=== PATIENT | female | born 1985 | race Asian ===

== ENCOUNTER 2023-12-28 08:07 | Emergency (ER) | payer BC ==
[~2023-12-28] VITALS: Ht 165.1 cm; Wt 99.8 kg
[2023-12-28 08:11] VITALS: BP_SYST 140; PULSE 81; RESP 16; TEMP 97.8; O2SAT 97
[2023-12-28 08:52] LABS: BASOPHILS # (AUTO) 0.1 K/uL (0.0-0.2); EOSINOPHILS # (AUTO) 0.1 K/uL (0.0-0.4); HEMATOCRIT 39.2 % (36-48); HEMOGLOBIN 12.8 g/dL (12.0-16.0); LYMPHOCYTES # (AUTO) 1.6 K/uL (1.0-5.5); LYMPHOCYTES % (AUTO) 24.7 % (20.5-51.5); MEAN CORPUSCULAR HEMOGLOBIN 26 pg (27-31); MEAN CORPUSCULAR HGB CONC 33 % (32-36); MEAN CORPUSCULAR VOLUME 79 fL (79.0-98.0); MONOCYTES # (AUTO) 0.4 K/uL (0.0-1.0); NEUTROPHILS # (AUTO) 4.4 K/uL (1.8-7.7); NEUTROPHILS % (AUTO) 66.3 % (40.0-70.0); PLATELET COUNT (AUTO) 282 K/uL (130-430); RED BLOOD CELL COUNT(AUTO) 4.96 MIL/uL (4.2-6.2); RED CELL DISTRIBUTION WIDTH 13.8 % (9.0-15.0); WHITE BLOOD COUNT (AUTO) 6.6 K/uL (4.8-10.8)
[2023-12-28 09:10] LABS: ANION GAP 9 (5-15); CALCIUM 9.6 mg/dL (8.4-11.0); CARBON DIOXIDE 27 mmol/L (23-29); CHLORIDE 102 mmol/L (98-107); CREATININE 0.73 mg/dL (0.55-1.30); GFR AFRICAN AMERICAN 115 mL/min (>90); GLUCOSE 108 mg/dL (74-106); POTASSIUM 4.3 mmol/L (3.5-5.1); SODIUM SERUM 138 mmol/L (136-145); UREA NITROGEN, BLOOD 8 mg/dL (8-21)
[2023-12-28 09:12] LABS: GFR NON AFRICAN-AMERICAN 95 mL/min (>90)
[2023-12-28] MEDS: MAG-AL HYDROX/SIMETH 30 ML UDC PO ONE (10:02)
[2023-12-28] MEDS: FAMOTIDINE PF 20 MG/2 ML VIAL IVP ONE (10:08)
[2023-12-28] MEDS: FAMOTIDINE 20 MG TABLET PO ONE (10:34)
[2023-12-28 10:43] LABS: BARBITURATE, URINE NEGATIVE (NEG <=200); BENZODIAZEPINE, URINE NEGATIVE (NEG <=150); CANNABINOID, URINE NEGATIVE (NEG <=50); COCAINE, URINE NEGATIVE (NEG <=150); METHAMPHETAMINES SCREEN,URINE NEGATIVE (NEG <=500); OPIATE, URINE NEGATIVE (NEG <=100); PHENCYCLIDINE SCREEN,URINE NEGATIVE (NEG <=25); URINE AMPHETAMINE NEGATIVE (NEG <=500); URINE METHADONE NEGATIVE (NEG <=200); URINE OXYCODONE SCREEN NEGATIVE (NEG <=100)
[2023-12-28 10:44] LABS: UR TRICYCLIC ANTIDEPRESSANTS NEGATIVE (NEG <=300)
[2023-12-28] MEDS ORDERED: OMEP-268 PO (11:28)
[2023-12-28 11:37] VITALS: BP_SYST 148; PULSE 100; RESP 20; TEMP 98.1; O2SAT 100
== END 2023-12-28 11:37 | disposition home or self-care (01) ==
LOC: SED 08:07
DX: K21.9 Gastro-esophageal reflux disease without esophagitis (principal); I10 Essential (primary) hypertension; E11.9 Type 2 diabetes mellitus without complications; Z90.49 Acquired absence of other specified parts of digestive tract; Z79.899 Other long term (current) drug therapy
CPT/HCPCS: 36415; 71045; 80048; 80307; 81025; 83690; 83880; 84484; 85025; 85379; 93005; 99285; J3490